=== PATIENT | male | born 1975 | race American Indian/Alaskan Native ===

== ENCOUNTER 2022-06-17 07:07 | Emergency (ER) | payer SELFPAY ==
[~2022-06-17] VITALS: Ht 180.3 cm; Wt 101.6 kg
[2022-06-17] MEDS ORDERED: KETOROLAC TROMETHAMINE 30 MG/ML VIAL IM STA (07:46)
[2022-06-17] MEDS ORDERED: KETOROLAC TROMETHAMINE 30 MG/ML VIAL ONE (07:58)
[2022-06-17] MEDS ORDERED: NAPROXEN250 MG PO (08:10)
== END 2022-06-17 08:14 | disposition home or self-care (01) ==
LOC: ER 07:10
DX: M65.4 Radial styloid tenosynovitis [de Quervain] (principal); F31.9 Bipolar disorder, unspecified
CPT/HCPCS: 73110; 99283; J1885